=== PATIENT | female | born 1990 | race Caucasian/White ===

== ENCOUNTER → 2016-02-22 | Outpatient (REF) | payer OTHER ==
[~2016-02-22] MED LIST: ACET50TA PO; ANUS2.5C2 PR; DOCU10ELUD PO; IBUP80TA PO; MOM30SS PO; PAIN325T OR; VICO5TAB OR
== END ==
LOC: M SFHCLERA 16:31
PROVIDERS: ATTEND Physician Assistant
DX: J02.9 Acute pharyngitis, unspecified (principal)

== ENCOUNTER → 2016-02-22 | Outpatient (CLI) | payer OTHER ==
--- NOTE | 2016-02-22 20:53 | REP ---
KUB, ONE VIEW: HISTORY: Abdominal pain. A small amount of air is present in small and large intestine. There are no air fluid levels or dilated loops of intestine. There is no pneumoperitoneum. IMPRESSION: Nonspecific bowel gas pattern. Signed by Zafar Mcgovern MD 02/23/2016 08:17 A
== END ==
LOC: M LRY 16:58
PROVIDERS: ATTEND Physician Assistant
DX: R10.84 Generalized abdominal pain (principal)

== ENCOUNTER → 2016-03-07 | Outpatient (CLI) | payer OTHER | LOC: M RAD 08:07 | PROVIDERS: ATTEND Physician Assistant | DX: R10.84 Generalized abdominal pain (principal) ==

== ENCOUNTER 2022-07-07 12:52 | Emergency (ER) | payer OTHER, SELFPAY ==
[~2022-07-07] VITALS: Ht 152.4 cm; Wt 64.0 kg
[~2022-07-07 12:52] MED LIST changes: -ACET50TA PO; -DOCU10ELUD PO; +DOCU5LIQ PO; +MAPA500T17 PO
[2022-07-07 15:10] VITALS: BP 121/81
== END 2022-07-07 15:11 | disposition home or self-care (01) ==
LOC: M ED 12:52
DX: M25.531 Pain in right wrist (principal); Z20.818 Contact with and (suspected) exposure to other bacterial communicable diseases; M54.9 Dorsalgia, unspecified; F41.9 Anxiety disorder, unspecified; Z87.891 Personal history of nicotine dependence

== ENCOUNTER 2022-07-12 10:08 | Emergency (ER) | payer OTHER ==
[~2022-07-12] VITALS: Ht 152.4 cm; Wt 65.3 kg
[2022-07-12] MEDS ORDERED: ACETAMINOPHEN 500 MG TAB PO ONE (11:40)
[2022-07-12 13:35] VITALS: BP 118/76
== END 2022-07-12 13:53 | disposition home or self-care (01) ==
LOC: M ED 10:08
DX: S06.0X1A Concussion with loss of consciousness of 30 minutes or less, initial encounter (principal); S16.1XXA Strain of muscle, fascia and tendon at neck level, initial encounter; W19.XXXA Unspecified fall, initial encounter; Y92.009 Unspecified place in unspecified non-institutional (private) residence as the place of occurrence of the external cause; Y93.89 Activity, other specified; Y99.8 Other external cause status; E78.5 Hyperlipidemia, unspecified; E11.9 Type 2 diabetes mellitus without complications; Z88.8 Allergy status to other drugs, medicaments and biological substances

== ENCOUNTER 2022-08-30 14:06 | Emergency (ER) | payer OTHER ==
[~2022-08-30] VITALS: Ht 152.4 cm; Wt 66.4 kg
[2022-08-30] MEDS ORDERED: PENI500T (14:37)
[2022-08-30] MEDS ORDERED: ACET1TAB55 (14:37)
[2022-08-30] MEDS ORDERED: IBUP-1022 (14:37)
[2022-08-30] MEDS ORDERED: NS 1,000 ML IV ONE (18:30)
[2022-08-30] MEDS ORDERED: METOCLOPRAMIDE INJ 10MG/2ML VIAL IV ONE (18:30)
[2022-08-30] MEDS ORDERED: diphenhydrAMINE 50MG/ML VIAL IV ONE (18:30)
[2022-08-30] MEDS ORDERED: ACETAMINOPHEN 1000MG 100ML IV BAG IV ONE (18:35)
[2022-08-30 20:46] VITALS: BP 108/55; TEMP 97.3; O2SAT 100
== END 2022-08-30 20:46 | disposition home or self-care (01) ==
LOC: M ED 14:06
DX: G43.909 Migraine, unspecified, not intractable, without status migrainosus (principal); Z88.8 Allergy status to other drugs, medicaments and biological substances
CPT/HCPCS: 81001; 96374; 96375; 99283; J0131; J1100; J1200; J2765

== ENCOUNTER → 2022-10-05 | Outpatient (REF) | payer OTHER ==
[~2022-10-05] MED LIST changes: +ACET1TAB55; +IBUP-1022; +PENI500T
== END ==
LOC: M PLALAB 10:36
PROVIDERS: ATTEND Advanced Practice Midwife
DX: Z34.81 Encounter for supervision of other normal pregnancy, first trimester (principal); Z53.9 Procedure and treatment not carried out, unspecified reason

== ENCOUNTER → 2022-10-05 | Outpatient (CLI) | payer OTHER ==
[2022-10-05 14:35] LABS: HEMATOCRIT 37.9 % (36.0-47.0); HEMOGLOBIN 12.5 g/dl (12.0-15.5); MEAN CORPUSCULAR HEMOGLOBIN 30.7 pg (27.0-33.0); MEAN CORPUSCULAR VOLUME 93.1 fl (80.0-96.0); PLATELET COUNT, AUTOMATED 317 10^3/uL (150-450); RED BLOOD COUNT 4.07 10^6/uL (4.00-5.40); WHITE BLOOD COUNT 11.7 10^3/uL (4.0-10.0)
[2022-10-05 15:27] LABS: HIV 1&2 SCREEN NEGATIVE (NEGATIVE)
[2022-10-05 15:35] LABS: HEPATITIS C VIRUS ABY INDEX 0.12 INDEX (<0.8)
[2022-10-05 16:45] LABS: GC DNA AMPLIFICATION NEGATIVE (NEGATIVE)
== END ==
LOC: M PLALAB 11:11
PROVIDERS: ATTEND Advanced Practice Midwife
DX: Z34.81 Encounter for supervision of other normal pregnancy, first trimester (principal)

== ENCOUNTER → 2022-11-29 | Outpatient (CLI) | payer OTHER | LOC: M WHC 15:07 | PROVIDERS: ATTEND Specialist | DX: Z36.2 Encounter for other antenatal screening follow-up (principal); Z3A.20 20 weeks gestation of pregnancy ==

== ENCOUNTER → 2022-12-12 | Outpatient (REF) | payer OTHER | LOC: M PLALAB 15:40 | PROVIDERS: ATTEND Advanced Practice Midwife | DX: Z34.82 Encounter for supervision of other normal pregnancy, second trimester (principal) ==

== ENCOUNTER → 2022-12-28 | Outpatient (CLI) | payer OTHER | LOC: M WHC 13:17 | PROVIDERS: ATTEND Advanced Practice Midwife | DX: Z34.82 Encounter for supervision of other normal pregnancy, second trimester (principal) ==

== ENCOUNTER → 2023-02-02 | Outpatient (CLI) | payer OTHER | LOC: M WHC 11:00 | PROVIDERS: ATTEND Advanced Practice Midwife | DX: Z34.83 Encounter for supervision of other normal pregnancy, third trimester (principal); Z3A.29 29 weeks gestation of pregnancy ==

== ENCOUNTER → 2023-03-21 | Outpatient (CLI) | payer OTHER ==
[2023-03-21 16:07] LABS: HEMATOCRIT 34.6 % (36.0-47.0); HEMOGLOBIN 10.6 g/dl (12.0-15.5); MEAN CORPUSCULAR HEMOGLOBIN 24.5 pg (27.0-33.0); MEAN CORPUSCULAR HGB CONC 30.6 g/dl (32.0-36.5); MEAN CORPUSCULAR VOLUME 79.9 fl (80.0-96.0); PLATELET COUNT, AUTOMATED 282 10^3/uL (150-450); RED BLOOD COUNT 4.33 10^6/uL (4.00-5.40); WHITE BLOOD COUNT 8.1 10^3/uL (4.0-10.0)
== END ==
LOC: M PLALAB 11:20
PROVIDERS: ATTEND Advanced Practice Midwife
DX: Z34.82 Encounter for supervision of other normal pregnancy, second trimester (principal)

== ENCOUNTER → 2023-03-21 | Outpatient (REF) | payer OTHER | LOC: M PLALAB 10:34 | PROVIDERS: ATTEND Advanced Practice Midwife | DX: Z34.83 Encounter for supervision of other normal pregnancy, third trimester (principal) ==

== ENCOUNTER 2023-11-18 17:17 | Emergency (ER) | payer OTHER ==
[2023-11-18] MEDS ORDERED: PRENTAB7 (17:33)
[2023-11-18] MEDS: NS 1,000 ML IV ONE (18:29)
[2023-11-18 18:42] LABS: BASO % 0.4 % (0.0-1.0); EOS # 0.2 10^3/uL (0.0-0.5); HEMATOCRIT 40.6 % (36.0-47.0); HEMOGLOBIN 13.7 g/dl (12.0-15.5); LYMPH # 2.5 10^3/uL (1.5-5.0); LYMPH % 22.1 % (24.0-44.0); MEAN CORPUSCULAR HEMOGLOBIN 30.6 pg (27.0-33.0); MEAN CORPUSCULAR HGB CONC 33.7 g/dl (32.0-36.5); MEAN CORPUSCULAR VOLUME 90.8 fl (80.0-96.0); MONO # 0.6 10^3/uL (0.0-0.8); MONO % 5.5 % (2.0-8.0); NEUTROPHILS # 7.9 10^3/uL (1.5-8.5); NEUTROPHILS % 69.5 % (36.0-66.0); PLATELET COUNT, AUTOMATED 269 10^3/uL (150-450); RED BLOOD COUNT 4.47 10^6/uL (4.00-5.40); WHITE BLOOD COUNT 11.3 10^3/uL (4.0-10.0)
[2023-11-18 18:43] LABS: URINE PREG TEST NEGATIVE (NEGATIVE)
[2023-11-18 19:07] LABS: LIPASE 59 U/L (12-53)
[2023-11-18 19:09] LABS: ALKALINE PHOSPHATASE 127 U/L (46-116); ALT/SGPT 130 U/L (7.0-40); AST/SGOT 37 U/L (<34); BILIRUBIN,DIRECT < 0.1 MG/DL (<0.4); BILIRUBIN,TOTAL 0.3 MG/DL (0.3-1.2); BLOOD UREA NITROGEN 11 MG/DL (9-23); CALCIUM LEVEL 9.2 MG/DL (8.5-10.1); CARBON DIOXIDE LEVEL 23 MMOL/L (20-31); CHLORIDE LEVEL 108 MMOL/L (98-107); CREATININE FOR GFR 0.55 MG/DL (0.55-1.30); GLOMERULAR FILTRATION RATE > 60.0 (>60); GLUCOSE, FASTING 87 MG/DL (60-100); POTASSIUM SERUM 4.5 MMOL/L (3.5-5.1); SODIUM LEVEL 138 MMOL/L (136-145)
[2023-11-18] MEDS: PANTOPRAZOLE 40MG VIAL IV ONE (19:18)
[2023-11-18] MEDS: KETOROLAC 30 MG/ML 1ML VIAL IV ONE (19:18)
[2023-11-18] MEDS ORDERED: PROTPAK PO (20:39)
[2023-11-18 21:05] VITALS: BP 123/80; TEMP 97.4; O2SAT 99
== END 2023-11-18 21:07 | disposition home or self-care (01) ==
LOC: EDBD 17:17 → M ED 17:17
DX: R10.9 Unspecified abdominal pain (principal); F12.10 Cannabis abuse, uncomplicated; Z88.8 Allergy status to other drugs, medicaments and biological substances; Z79.1 Long term (current) use of non-steroidal anti-inflammatories (NSAID); Z79.810 Long term (current) use of selective estrogen receptor modulators (SERMs)
CPT/HCPCS: 74176; 80053; 81001; 82248; 83690; 84703; 85025; 96361; 96374; 99284; J1885; J2470